=== PATIENT | male | born 2005 | race African-American/Black ===

== ENCOUNTER 2025-04-20 08:37 | Emergency (ER) | payer MEDICAID, SELFPAY ==
--- OUTSIDE RECORDS SUMMARY | 2014-11-01 11:06 | XMS_ITS | Continuity of Care Document ---
Author Organization [facility] Address [address] [place] [address] Phone Care Team Providers Care Waste Management Engineer Name Role Phone Unavailable Unavailable Unavailable Allergies, Adverse Reactions, Alerts Substance Reaction Status Criticality No Known Allergies Active No Inform ation Medications Medication Instructions Dosage Effective Dates (start - stop) Status Comments Flovent HFA 110 mcg/actuation aerosol inhaler inhale 2 puff by inhalation route 2 times every day 220 MCG - Active albuterol sulfate HFA 90 mcg/actuation aerosol inhaler inhale 2 puff by inhalation route every 4 - 6 hours as needed - Active Concerta 54 mg tablet,extended release take 1 tablet by oral route every day in the morning 54 MG - Active methylphenidate 5 mg tablet take 1 tablet by oral route every day 5 MG - Active Eucerin topical cream Apply to dry skin daily - Active Please dispense large tub/container. Procedures Procedure Date OFFICE/OUTPATIENT VISIT, EST OFFICE/OUTPATIENT VISIT, EST OFFICE/OUTPATIENT VISIT, EST ADMIN OF A 1ST COMPONENT OF AN IMMZ W/CO UNSELING ADMIN OF ADDT'L COMPONENT OF AN IMMZ W/C OUNSELING OFFICE/OUTPATIENT VISIT, EST ADMIN OF A 1ST COMPONENT OF AN IMMZ W/CO UNSELING PREV VISIT, EST, AGE 5-11 ASSESS HLTH/BEHAVE, SUBSEQ OFFICE/OUTPATIENT VISIT, EST OFFICE/OUTPATIENT VISIT, EST FAMILY PSYTX W/PATIENT FAMILY PSYTX W/PATIENT Initial Diagnostic Evaluation No Prescri mark OFFICE/OUTPATIENT VISIT, EST ADMIN OF A 1ST COMPONENT OF AN IMMZ W/CO UNSELING OFFICE/OUTPATIENT VISIT, EST OFFICE/OUTPATIENT VISIT, EST OFFICE/OUTPATIENT VISIT, EST OFFICE/OUTPATIENT VISIT, EST FAMILY PSYTX W/PATIENT OFFICE/OUTPATIENT VISIT, EST ADMIN OF A 1ST COMPONENT OF AN IMMZ W/CO UNSELING PREV VISIT, NEW, AGE 5-11 Advance Directives Directive Yes / No Effective Date File Name No Information Encounters Encounter Description Practice Location Reason(s) For Visit Diagnoses Date Provider Providers Copied on Encounter [facility], [address], [place], [place], [id number], [place] tel:[phone] [facility] No Information 5 No Information OFFICE/OUTPA TIENT VISIT, [facility], [address], [place], [place], [id number], [place] tel:[phone] [facility] Follow Up of ER (chief complaint) AsthmaBehavio r concernAttent ion deficit disorder of childhood with hyperactivity 5 No Information OFFICE/OUTPA TIENT VISIT, [facility], [address], [place], [place], [address], [place] tel:[phone] [facility] cold symptoms (chief complaint) URI (upper respiratory infection) 5 No Information OFFICE/OUTPA TIENT VISIT, [facility], [address], [place], [place], [id number], [place] tel:[phone] [facility] Immunizations (chief complaint) Attention deficit disorder of childhood with hyperactivity Need for prophylactic vaccination and inoculation against other combinations of diseasesNeed for prophylactic vaccination and inoculation against poliomyelitis NEED FOR PROPHYLACTIC VACCINATION WITH COMBINED DIPHTHERIA-TE TANUS-PERTUSS IS (DTP) (DTAP) VACCINE 5 No Information [facility], [address], [place], [place], [address], [place] tel:[phone] Clinical Services Department No Information 4 [facility]. [address] [place], [address], [place]. tel:[phone] [facility], [address] [address], [place], [place], [id number], [place] tel:[phone] [facility] Visual hallucination 4 No Information OFFICE/OUTPA TIENT VISIT, EST [facility], [address], [place], [place], [id number], [place] tel:[phone] [facility] [place] of [place] (chief complaint) Attention deficit disorder of childhood with hyperactivity Behavior concernAsthma 4 No Information PREV VISIT, EST, AGE 5-11 [facility], [address], [place], [place], [id number], [place] tel:[phone] [facility] well child (chief complaint) ROUTIN CHILD HEALTH EXAMHearing lossOther psychological or physical stress, not elsewhere classifiedAtt ention deficit disorder of childhood with hyperactivity Eczema 4 No Information [facility], [address], [place], [place], [address], [place] tel:[phone] [facility] Attention deficit disorder of childhood with hyperactivity Other psychological or physical stress, not elsewhere classified 4 No Information OFFICE/OUTPA TIENT VISIT, EST [facility], [address], [place], [place], [id number], [place] tel:[phone] [facility] Follow Up of RX (chief complaint)ADD /ADHD (chief complaint) Visual hallucination sWeight loss 4 No Information OFFICE/OUTPA TIENT VISIT, [facility], [address], [place], [place], [address], [place] tel:[phone] [facility] ADD/ADHD (chief complaint) Attention deficit disorder of childhood with hyperactivity Weight loss 4 No Information FAMILY PSYTX W/PATIENT [facility], [address], [place], [place], [address], [place] tel:[phone] [facility] Relationship problems specific to childhood and adolescenceCo unseling for parent-child problem, unspecifiedAt tention deficit disorder of childhood with hyperactivity 4 No Information FAMILY PSYTX W/PATIENT [facility], [address], [place], [place], [address], [place] tel:[phone] [facility] Attention deficit disorder of childhood with hyperactivity 4 No Information Initial Diagnostic Evaluation No Prescriber [facility], [address], [place], [place], [address], [place] tel:[phone] [facility] Attention deficit disorder of childhood with hyperactivity FMILY DSRPT- DIVORCE/SEPRe lationship problems specific to childhood and adolescence 4 No Information OFFICE/OUTPA TIENT VISIT, [facility], [address], [place], [place], [address], [place] tel:[phone] [facility] ADD/ADHD (chief complaint) ADHD (attention deficit hyperactivity disorder)Asth maFlu vaccine need 3 No Information OFFICE/OUTPA TIENT VISIT, [facility], [address], [place], [place], [address], [place] tel:[phone] [facility] ADD/ADHD (chief complaint) ADHD (attention deficit hyperactivity disorder) 3 No Information OFFICE/OUTPA TIENT VISIT, [facility], [address], [place], [place], [address], [place] tel:[phone] [facility] ADD/ADHD (chief complaint) ADHD (attention deficit hyperactivity disorder)Asth ma 3 No Information OFFICE/OUTPA TIENT VISIT, [facility], [address], [place], [place], [address], [place] tel:[phone] [facility] asthma (chief complaint) Moderate persistent asthma with exacerbation 3 No Information OFFICE/OUTPA TIENT VISIT, [facility], [address], [place], [place], [address], [place] tel:[phone] [facility] ADD/ADHD (chief complaint) ADHD (attention deficit hyperactivity disorder) 2 No Information FAMILY PSYTX W/PATIENT [facility], [address], [place], [place], [address], [place] tel:[phone] [facility] Attention deficit disorder of childhood with hyperactivity 2 No Information OFFICE/OUTPA TIENT VISIT, [facility], [address], [place], [place], [address], [place] tel:[phone] [facility] ADD/ADHD (chief complaint) AsthmaADHD (attention deficit hyperactivity disorder) 2 No Information PREV VISIT, NEW, AGE 5-11 [facility], [address], [place], [place], [address], [place] tel:[phone] [facility] Well child - 7 Years (chief complaint) Routine infant or child health checkInfluenz a VaccineAsthma EczemaADHD (attention deficit hyperactivity disorder)Rout ine or child health check 2 No Information Family History Family Member Type Diagnosis Age At Onset Problem (finding) Family history of hyper tension Problem (finding) Family history of Diabe samantha mellitus Immunizations Vaccine Date Status Comments ProQuad (MMRV) administered Note: Diluent lot# [id number] exp ; Source: New Immunization Record HPV administered Source: New Imm unization Record Hep B (ped/adol, 3 dose) administered Laurence rce: New Immunization Record Hep A (ped/adol, 2 dose) administered Laurence rce: New Immunization Record Polio, Inactive administered Source: New Immunization Record Tdap administered Source: New Imm unization Record Influenza, live, intranasal, quadrivalent Flumist Quad administered Source: New Immuniza tion Record Flu (split) (3 yrs or older) administered Source: New Immunization Record Flu (split) (3 yrs or older) administered Source: New Immunization Record Payers Payer name Insurance type Covered libertarian ID Authoriza tion(s) No Information Social History Type Description Quantity Date Captured Comments Sex Male Smoking Status No Information Chief Complaint And Reason For Visit No Information Reason For Referral Reason For Referral No Information History Of Present Illness Encounter Date Complaint History Of Prese nt Illness Follow Up of ER cold symptoms Onset: 2 Days ag o. Symptoms are associated with recent cold, sick contacts at school and sick family member. Denies aggravating factors. Denies relieving factors. Associated symptoms include cough, fever, nasal congestion and rhinitis. Pertinent negatives include chills/rigors, decreased appetite, decreased fluid intake, decreased urine output, difficulty sleeping, dyspnea, facial pain, fatigue, fussiness, headache, hemoptysis, myalgia, otalgia, pharyngitis, postnasal drainage, rash, sinus pressure, sputum, tooth pain and wheezing. Additional information: on amox for an ear infection. Immunizations Follow Up of [place] well child RX Follow Up of RX ADD/ADHD Onset: 3 Years A go. The severity of the problem is moderate. The problem is unchanged. The frequency of the problem is daily. The behavior is described as problems at home and at school. Symptoms are associated with prior diagnosis of ADD/ADHD and known learning disability. Behaviors have persisted for more than 6 months. Behaviors began before age 6 to some degree. Symptoms are not associated with pertinent past medical history. Aggravating factors include distractions, stress, recent changes in home environment and tasks requiring attention to detail. The patient denies aggravating factors such as deadlines. Relevant symptoms of hyperactivity include being described as on the go or driven by a motor, difficulty engaging in quiet activities, leaving seat when expected to remain seated, talking excessively and unable to fall asleep. Relevant symptoms of impulsivity include difficulty waiting turn and often interrupting or intruding on others. Relevant symptoms of inattention include avoiding or disliking tasks which require sustained mental effort, difficulty organizing tasks or activities, difficulty sustaining attention in tasks or play, not seeming to listen when spoken to directly, being forgetful in daily activities, losing things necessary for tasks or activities and often not following through on instructions/failing to finish assignments. Additional information: Pt now having visual hallucinations at night. ADD/ADHD (comments) Jourdan is controlling behavior well, pt has lost weight, Per Mom he is eating well but she feels he is also growing. no fevers, no abd pain, no joint swelling, no PEDRAZA ADD/ADHD Onset: 3 Years A go. The behavior is described as problems at home and at school. Symptoms are associated with prior diagnosis of ADD/ADHD and known learning disability. Behaviors have persisted for more than 6 months. Behaviors began before age 7 to some degree. Symptoms are not associated with pertinent past medical history. Aggravating factors include distractions, stress, recent changes in home environment and tasks requiring attention to detail. The patient denies aggravating factors such as deadlines. Relevant symptoms of hyperactivity include being described as on the go or driven by a motor, difficulty engaging in quiet activities, leaving seat when expected to remain seated, talking excessively and unable to fall asleep. Relevant symptoms of impulsivity include difficulty waiting turn and often interrupting or intruding on others. Relevant symptoms of inattention include avoiding or disliking tasks which require sustained mental effort, difficulty organizing tasks or activities, difficulty sustaining attention in tasks or play, not seeming to listen when spoken to directly, being forgetful in daily activities, losing things necessary for tasks or activities and often not following through on instructions/failing to finish assignments. Functional Status Date Functional Assessmen t No Information Instructions Date Instruction Additional Infor nick OM is rresolving. Is to complete the abx. Blow nose often, push fluids and take steamy showers or baths. return if any concerns Related to URI (upper respiratory infection) Age approriate antic ipatory guidance discussed (9-10 years) Related to ROUTIN CHILD HEALTH EXAM Age appropriate diet discussed (9-10 years) Related to ROUTIN CHILD HEALTH EXAM Age appropriate safe ty discussed (9-10 years) Related to ROUTIN CHILD HEALTH EXAM Oral Health Discussed (9-10 year s) Related to ROUTIN CHILD HEALTH EXAM Follow up with Psych iatry. Call for appt with Dr. Garrido once you have seen psychiatry. Related to Visual hallucinations asked Mom to allow m ore grazing, suggested carnation instant breakfast. f/u 2 months to monitor weight Related to Weight loss Patient and caregive r have denied any PMHX of cardiac issues. Medications and their side effects discussed. Instructed caregiver to call when need new prescription and allow 48 hours for script to be written. If any concerns with medication dosing or effectiveness call for appointment. Caregiver expresses understanding. Related to Attention deficit disorder of childhood with hyperactivity Age approriate antic ipatory guidance discussed Related to routine /child health checkup Age appropriate safety discussed Related to routine infant/child health checkup Assessments Type Assessment Date No Information Patient Care Teams Name Effective Dates (start - stop) Status Members No Information
--- NOTE | ~2025-04-20 | XR_ITS ---
EXAMINATION: XR ANKLE 3 OR MORE VIEWS RIGHT, XR FOOT 3 OR MORE VIEWS RIGHT HISTORY: pain, injury COMPARISON: There are no prior studies available for comparison. FINDINGS: Six views of the right foot and ankle are submitted. Osseous mineralization is normal. There is no fracture or dislocation. The joint spaces are preserved. There is soft tissue swelling over the lateral malleolus. XR/XR foot RT min 3V IMPRESSION: Soft tissue swelling over the lateral malleolus. No evidence of fracture of the right foot or ankle. Electronically signed by: Stanislaw Toro MD 04/20/2025 09:01 AM EDT
--- NOTE | ~2025-04-20 | XR_ITS ---
EXAMINATION: XR ANKLE 3 OR MORE VIEWS RIGHT, XR FOOT 3 OR MORE VIEWS RIGHT HISTORY: pain, injury COMPARISON: There are no prior studies available for comparison. FINDINGS: Six views of the right foot and ankle are submitted. Osseous mineralization is normal. There is no fracture or dislocation. The joint spaces are preserved. There is soft tissue swelling over the lateral malleolus. XR/XR ankle RT min 3V IMPRESSION: Soft tissue swelling over the lateral malleolus. No evidence of fracture of the right foot or ankle. Electronically signed by: Stanislaw Toro MD 04/20/2025 09:01 AM EDT
[2025-04-20 08:39] VITALS: BP 130/63; PULSE 78; RESP 16; TEMP 36.3; O2SAT 99; BMI 26.2
--- NOTE | 2025-04-20 08:43 | ED_ITS ---
HPI - General Adult General Chief complaint: Extremity Injury, Lower Stated complaint: Twisted R ankle Time Seen by Provider: 04/20/25 08:43 Source: patient Mode of arrival: ambulatory Limitations: no limitations History of Present Illness ED Provider: Marina Jimenez PA-C HPI narrative: Patient is a 19 year old assigned male at with no reported medical history presenting to the emergency department today with right ankle and foot pain. Patient states that yesterday he twisted his right foot / ankle while playing basketball and he has had pain ever since. Patient denies any other complaints at this time. Related Data Allergies Allergy/AdvReac Type Severity Reaction Status Date / Time No Known Allergies Allergy Verified 04/20/25 08:43 Review of Systems Constitutional: Constitutional: Reports as per HPI Eyes: Eyes: Reports as per HPI ENT: Reports as per HPI Cardiovascular: Cardiovascular: Reports as per HPI Respiratory: Respiratory: Reports as per HPI Gastrointestinal: Gastrointestinal: Reports as per HPI Genitourinary: Genitourinary: Reports as per HPI Musculoskeletal: Musculoskeletal: Reports as per HPI Integumentary/Breasts: Skin/Breast: Reports as per HPI Neurologic: Reports as per HPI Psychiatric: Psychiatric: Reports as per HPI Endocrine: Endocrine: Reports as per HPI Hematologic/Lymphatic: Hematologic/Lymphatic: Reports as per HPI Allergic/Immunologic: Allergic/Immunologic: Reports as per HPI [facility] Past Medical History Attestation statement: The following information was validated with the patient. Source: old records reviewed and nursing notes reviewed Social History Social History Advance Directives: No Advance Directives Information Provided: Yes Physical Exam ED Vital Signs: Vital Signs - 24 hr 04/20/25 08:39 Temperature 97.4 F Pulse Rate 78 Respiratory Rate 16 Blood Pressure 130/63 Pulse Oximetry 99 Oxygen Delivery Method Room Air BMI result Body Mass Index 26.2 Const General: cooperative, no acute distress, alert and awake Nutritional Appearance: well nourished Orientation/consciousness: patient oriented x3 HENMT Head: Yes normal to inspection and Yes atraumatic Ears: hearing grossly normal bilaterally and external ears normal General nose exam: Normal external nose present, no nasal discharge noted and no epistaxis Face and sinus: Yes normal facial exam, No abrasion and No laceration Mouth: Normal oral and palatal mucosa present, no drooling and no muffled voice Eyes General: appearance normal, both eyes and all related structures Periorbital: periorbital findings normal Eyelids: Yes eyelids normal Conjunctivae: conjunctivae normal Pupils: Equal, round and reactive pupils present EOM: EOMs intact bilaterally Neck Neck: Yes normal visual inspection and Yes full ROM Resp Effort & Inspection: normal respiratory effort and able to speak in complete sentences Neuro General: patient oriented x3, moves all extremities and CN's II-XI intact bilaterally Cranial nerves: Yes Equal, round and reactive pupils present Cognition (Neuro): normal cognition Extrem Other: minimal swelling present to the lateral aspect of the right ankle / foot General: Yes full ROM and Yes capillary refill normal Psych Appearance: grossly normal Mental Status: mental status grossly normal Affect: normal affect Attitude: cooperative Thought process: Normal thought process present Thought content: Normal thought content present Insight: Good insight present (Psych) Procedures Orthopedic Splinting/Casting R ankle: Side: right Upper Extremity Immobilizer: Brooks wrap Lower Extremity Injury Location: ankle Medical Decision Making Medical Decision Making MDM Narrative: Patient is a 19 year old assigned male at with no reported medical history presenting to the emergency department today with right ankle and foot pain. Patient's physical exam was as noted in the physical exam portion of this note and consistent with a right ankle sprain. Patient's right foot and ankle x-rays showed no acute process. BROOKS wrap was placed on the ankle, without incident. Patient's PMS was intact prior to and after BROOKS placement. I explained my physical exam findings as well as all test results to the patient. I answered all questions asked by the patient. I stressed the importance of the patient taking his medication as directed (either prescribed or as the over the counter packaging recommends). I stressed the importance of the patient following up with his primary care provider. I stressed the importance of the patient returning to the emergency department immediately if his symptoms were to worsen or if he were to develop any dizziness, shortness of breath, difficulty breathing, chest pain, blurry vision, loss of vision, nausea, vomiting, abdominal pain, fever, chills, back pain, or any other complaints. Patient verbalized agreement and understanding with this treatment plan and discharge. Differential Diagnosis Differential Diagnoses: The differential diagnosis associated with the presentation includes Right ankle pain Right ankle sprain Right ankle strain Right ankle fracture Right foot sprain Right foot strain Right foot fracture Admission/Observation Consideration of admission/observation: Escalation of care including admission/observation considered Patient would have been admitted to the hospital had his work up had any findings where hospital admission was appropriate and his clinical presentation warranted hospital admission. Independent Interpretation I performed an independent interpretation of an: Plain X-Ray Interpretation: My interpretation is in agreement with the radiologist's impression of these imaging studies. Reason for Exam: pain, injury EXAMINATION: XR ANKLE 3 OR MORE VIEWS RIGHT, XR FOOT 3 OR MORE VIEWS RIGHT HISTORY: pain, injury COMPARISON: There are no prior studies available for comparison. FINDINGS: Six views of the right foot and ankle are submitted. Osseous mineralization is normal. There is no fracture or dislocation. The joint spaces are preserved. There is soft tissue swelling over the lateral malleolus. XR/XR ankle RT min 3V IMPRESSION: Soft tissue swelling over the lateral malleolus. No evidence of fracture of the right foot or ankle. Electronically signed by: Stanislaw Toro MD 04/20/2025 09:01 AM EDT RP Dictated By: Stanislaw Toro MD Signed By: Electronically signed by Stanislaw Toro MD 04/20/25 0901 Radiology Impression Discussion of test interpretation with radiology: I have reviewed the radiologist's reading. Discharge Plan Discharge Clinical Impression: Ankle sprain and strain Patient Disposition: Home, Self-Care Instructions: Ankle Sprain (DC), How to Use an Elastic Bandage (ED) Additional Instructions: Your x-ray showed no fracture / break. I am suspicious you have a strain / sprain of the ankle. IF you are prescribed home medications and/or you are taking over the counter medications at home - it is very important you continue to do so as prescribed / directed unless told otherwise. Follow up with a primary care provider. Return to the emergency department immediately if your symptoms worsen or if you develop any numbness, tingling, dizziness, shortness of breath, difficulty breathing, chest pain, blurry vision, loss of vision, nausea, vomiting, abdominal pain, fever, chills, back pain, or any other complaints. If you do not have a primary care provider - call any of the below numbers to establish and follow up with a primary care provider. [facility] Primary Care ([place]) [phone] [place] [address], [address] [facility] Primary Care ([address] [place]) [phone] [place] [address], [address] [facility], [address] [facility] Primary Care ([address] [place]) [phone] [place] [address], [address] [facility], [address] [facility] Care ([place]) [phone] [place] [address] [facility], [address] [facility] Family Medicine [phone] [address] [facility], [address] Please see the information below about our Patient Portal. If you are not yet enrolled in the [facility] Patient Portal, you will receive an enrollment email invitation following your visit to any [facility] setting. You may also self-enroll in the Patient Portal by visiting our website: [email or web address] The following information is required to access the Patient Portal: - Your [facility] Medical Record Number - Your personal home email address (must match what is in your electronic medical record, Registration staff can assist with this) - Name - Date of Capabilities of the Patient Portal: - Message some providers - View upcoming appointments - Access your health summary, medical history, and visit history - View current conditions and allergies - View procedure and lab results - View your medications, including guidelines, side effects, and precautions - Complete pre-appointment questionnaires requested by your provider - Ready summary reports of your office visits and procedures To access the Patient Portal Mobile [employer], follow these directions: - Search [employer] in the [employer] Store or [employer] Store - Download the Shelley - Search for [facility] - Enter your login/password Stand Alone Forms: Work/School Release Interventions: ED Discharge Assessment Last Done: 04/20/25 09:52 Print Language: Pashto
[2025-04-20 09:52] VITALS: BP 130/63; PULSE 78; RESP 16; TEMP 36.3; O2SAT 99
== END 2025-04-20 09:53 | disposition home or self-care (01) ==
PROVIDERS: Emergency Provider Emergency Medicine
DX: S93.401A Sprain of unspecified ligament of right ankle, initial encounter (principal); M79.671 Pain in right foot; X50.1XXA Overexertion from prolonged static or awkward postures, initial encounter; Y93.01 Activity, walking, marching and hiking; Y92.9 Unspecified place or not applicable; Y99.8 Other external cause status
CPT/HCPCS: 73610; 73630; 99282; 99283

== ENCOUNTER → 2025-04-20 08:43 | Outpatient (BNV) | payer MEDICAID, SELFPAY | PROVIDERS: Emergency Provider Emergency Medicine; Visit Provider Radiology Diagnostic Radiology | DX: M79.89 Other specified soft tissue disorders (principal) | CPT/HCPCS: 73610; 73630 ==